=== PATIENT | male | born 1970 | race American Indian/Alaskan Native ===

== ENCOUNTER 2024-01-22 17:25 | Inpatient (IN) | payer OTHER ==
[2024-01-22 19:22] VITALS: BMI 22.6
[2024-01-22] MEDS ORDERED: cloNIDine HCL 0.1 MG TABLET ONE (19:48)
[2024-01-22] MEDS ORDERED: DICYCLOMINE HCL 10 MG CAPSULE PO PRN (19:52)
[2024-01-22] MEDS ORDERED: METHOCARBAMOL 500 MG TABLET PO PRN (19:52)
[2024-01-22] MEDS ORDERED: BENZONATATE 200 MG CAPSULE PO PRN (19:52)
[2024-01-22] MEDS ORDERED: guaiFENesin 600 MG TABLET.ER (FP) PO PRN (19:52)
[2024-01-22] MEDS ORDERED: NICOTINE POLACRILEX 2 MG GUM BUC PRN (19:52)
[2024-01-22] MEDS ORDERED: ACETAMINOPHEN 325 MG TABLET (FP) PO PRN (19:52)
[2024-01-22] MEDS ORDERED: NICOTINE POLACRILEX 2 MG LOZENGE BC PRN (19:52)
[2024-01-22] MEDS ORDERED: LOPERAMIDE HCL 2 MG CAPSULE PO PRN (19:52)
[2024-01-22] MEDS ORDERED: BENZOCAINE/MENTHOL (CHLORASEPTIC ) LOZENGE MM PRN (19:52)
[2024-01-22] MEDS ORDERED: MAGNESIUM HYDROX 2400MG/30ML ORAL SUSPENSION 30 ML CUP PO PRN (19:52)
[2024-01-22] MEDS ORDERED: ONDANSETRON *ODT* 4 MG TABLET SL PRN (19:52)
[2024-01-22] MEDS ORDERED: MAG HYDROX/AL HYDROX/SIMETH 30 ML UNIT-DOSE CUP PO PRN (19:52)
[2024-01-22] MEDS ORDERED: POLYETHYLENE GLYCOL (HEALTHYLAX) 3350 17 GM PACKET PO PRN (19:52)
[2024-01-22] MEDS: cloNIDine HCL 0.1 MG TABLET PO ONE (19:57)
[2024-01-22] MEDS: MELATONIN 5 MG TABLETS PO SCH (22:18)
[2024-01-22] MEDS: THIAMINE 100 MG TABLET PO SCH (22:18)
[2024-01-23] MEDS ORDERED: chlordiazePOXIDE HCL 25 MG CAPSULE PO PRN (09:04)
[2024-01-23] MEDS: PRENATAL VITAMINS W/ FOLIC ACID TABLET (FP) PO SCH (10:15)
[2024-01-23] MEDS: chlordiazePOXIDE HCL 25 MG CAPSULE PO SCH (10:16)
[2024-01-23] MEDS: NICOTINE 21 MG/24 HOURS TOPICAL PATCH TD SCH (10:16)
[2024-01-23 15:28] LABS: HEMATOCRIT 46.1 % (35.4-49); HEMOGLOBIN 15.2 GM/dL (11.7-16.9); MCH 26.5 pg (25.7-33.7); MCHC 32.9 g/dl (32.0-35.9); MEAN CELL VOLUME 80.4 fl (80-96); MEAN PLT VOLUME 8.9 fl (7.5-11.1); PLATELET COUNT 218 10^3/uL (134-434); RBC 5.73 M/mm3 (4.00-5.60); RDW 17.2 % (11.9-15.9); WHITE BLOOD COUNT 9.1 K/mm3 (4.0-10.0)
[2024-01-23] MEDS: RIVAROXABAN 20 MG TABLET PO SCH (17:29)
[2024-01-23] MEDS: cloNIDine HCL 0.1 MG TABLET PO ONE (19:30)
[2024-01-23 23:16] LABS: HIV INTERPRETATION NEGATIVE (NEGATIVE)
[2024-01-25] MEDS: chlordiazePOXIDE HCL 25 MG CAPSULE PO SCH (05:54)
[2024-01-25] MEDS: hydrOXYzine PAMOATE 25 MG CAPSULE (FP) PO PRN (05:57)
[2024-01-26] MEDS ORDERED: chlordiazePOXIDE HCL 10 MG CAPSULE PO PRN
[2024-01-26] MEDS: chlordiazePOXIDE HCL 10 MG CAPSULE PO SCH (05:56)
[2024-01-26] MEDS: LISINOPRIL 20 MG TABLET PO ONE (12:14)
[2024-01-27] MEDS: chlordiazePOXIDE HCL 10 MG CAPSULE PO SCH (05:37)
[2024-01-27] MEDS: LISINOPRIL 10 MG TABLET PO SCH (09:52)
[2024-01-28] MEDS: chlordiazePOXIDE HCL 10 MG CAPSULE PO ONE (05:50)
[2024-01-28 08:46] VITALS: BP 138/93; PULSE 83; RESP 18; TEMP 98
[2024-01-28] MEDS: PNEUMOC 20-VAL CONJ-DIP CRM/PF 0.5 ML SYRINGE IM ONE (11:16)
[2024-01-28] MEDS: NALOXONE (NYS OPIOID OVERDOSE PROGRAM) 4 MG/0.1 ML SPRAY NS ONE (12:45)
== END 2024-01-28 11:44 | disposition home or self-care (01) | DRG 775 ==
LOC: YASAS 17:25 → Y6N 20:08
PROVIDERS: ADMIT Allergy & Immunology; ATTEND Surgery
PROC: HZ2ZZZZ Detoxification Services for Substance Abuse Treatment (ICD-10-PCS; principal; 2024-01-22)
DX: F10.230 Alcohol dependence with withdrawal, uncomplicated (principal); F12.20 Cannabis dependence, uncomplicated; F17.210 Nicotine dependence, cigarettes, uncomplicated; F41.9 Anxiety disorder, unspecified; I10 Essential (primary) hypertension; M17.0 Bilateral primary osteoarthritis of knee; M19.071 Primary osteoarthritis, right ankle and foot; M19.072 Primary osteoarthritis, left ankle and foot; Z86.718 Personal history of other venous thrombosis and embolism; Z79.01 Long term (current) use of anticoagulants
CPT/HCPCS: 36415; 71046-TC-FY; 80053; 80305; 80307; 85027; 86780; 86803; 87389; 90677; 93005; 93010; G0009